=== PATIENT | male | born 1955 | race Caucasian/White ===

== ENCOUNTER 2019-01-17 11:50 | Emergency (ER) | payer BC ==
[2019-01-17] MEDS ORDERED: Glucagon,Human Recombinant 1 MG Vial IVPUSH ONE (12:06)
--- NOTE | 2019-01-17 12:12 | EDM.PDOC ---
ED HPI GENERAL MEDICAL PROBLEM - General Chief Complaint: Gastrointestinal Problem Stated Complaint: THROWING UP BLOOD Time Seen by Provider: 01/17/19 11:54 Source of Information: Reports: Patient History Limitations: Reports: No Limitations - History of Present Illness INITIAL COMMENTS - FREE TEXT/NARRATIVE: HISTORY AND PHYSICAL: History of present illness: Patient is a 63-year-old male who presents to the emergency room today with complaints of esophageal foreign body. He states that prior to arrival he was eating a chicken sandwich when he felt a piece of meat get stuck in his throat. He has had several episodes of emesis but still has the sensation and difficulty swallowing his saliva. He states he has had an esophageal food bolus previous which did require an EGD for extraction. Patient denies any fever, chills, headache, change in vision, syncope or near syncope. Denies any chest pain, back pain, dyspnea, shortness of breath or cough. Denies any abdominal pain, nausea, vomiting, diarrhea, constipation or dysuria. Past medical history of HTN and DM II. Review of systems: As per history of present illness and below otherwise all systems reviewed and negative. Past medical history: As per history of present illness and as reviewed below otherwise noncontributory. Surgical history: As per history of present illness and as reviewed below otherwise noncontributory. Social history: See social history for further information Family history: As per history of present illness and as reviewed below otherwise noncontributory. Physical exam: General: Well-developed and well-nourished 63-year-old male. Alert and oriented. Nontoxic appearing and in no acute distress. HEENT: Atraumatic, normocephalic, pupils equal and reactive bilaterally, negative for conjunctival pallor or scleral icterus, mucous membranes moist, TMs normal bilaterally, throat clear, neck supple, nontender, trachea midline. No drooling or trismus noted. No meningeal signs. No hot potato voice noted. Lungs: Clear to auscultation, breath sounds equal bilaterally, chest nontender. Heart: S1S2, regular rate and rhythm without overt murmur Abdomen: Soft, nondistended, nontender. Negative for masses or hepatosplenomegaly. Negative for costovertebral tenderness. Skin: Intact, warm, dry. No lesions or rashes noted. Extremities: Atraumatic, moves all extremities per self without difficulty or deficits, negative for cords or calf pain. Neurovascular unremarkable. Neuro: Awake, alert, oriented. Cranial nerves II through XII unremarkable. Cerebellum unremarkable. Motor and sensory unremarkable throughout. Exam nonfocal. Notes: Oral challenge was successful after the IV glucagon. Dr Mcneil was consulted on this case, as he was paged before patient was able to keep fluids down. He states that since this patient can now swallow and keep fluids down; to keep him on a bland clear/full liquid diet over the next few days. Patient has been able to keep liquids down and did attempt some applesauce. His vital signs have improved. Soft tissue x-ray shows no acute findings. Supportive care measures were reviewed and discussed. Diagnostics: Soft Tissue Neck Therapeutics: Glucagon, LR Impression: Esophageal food bolus, resolved History of hypertension Plan: 1. Full liquid diet over the next 24-48 hours (cream soup, fluids, etc...). Advance as tolerated 2. Tylenol and/or ibuprofen as needed for pain management. 3. Follow up with your primary care provider and/or the general surgeon as discussed. Return to the ED as needed and as discussed. Definitive disposition and diagnosis as appropriate pending reevaluation and review of above. epigastric Pain Score (Numeric/FACES): 5 - Related Data Allergies Allergy/AdvReac Type Severity Reaction Status Date / Time No Known Allergies Allergy Verified 01/17/19 11:57 Home Meds: Home Meds Aliskiren Hemifumarate [Tekturna] 300 mg PO DAILY 01/17/19 [History] Hydrochlorothiazide [Microzide] 1 tab PO DAILY 01/17/19 [History] Tamsulosin HCl [Flomax] 0.4 mg PO DAILY 01/17/19 [History] atorvaSTATin [Lipitor] 10 mg PO DAILY 01/17/19 [History] metFORMIN [Glucophage XR] 500 mg PO DAILY 01/17/19 [History] Past Medical History HEENT History: Reports: Other (See Below) Other HEENT History: hx small esophagus Cardiovascular History: Reports: Heart Murmur, Hypertension Respiratory History: Reports: None Gastrointestinal History: Reports: None Genitourinary History: Reports: Prostate Disorder Musculoskeletal History: Reports: None Neurological History: Reports: None Psychiatric History: Reports: None Endocrine/Metabolic History: Reports: Diabetes, Type II Hematologic History: Reports: None Immunologic History: Reports: None Oncologic (Cancer) History: Reports: Prostate Dermatologic History: Reports: None - Infectious Disease History Infectious Disease History: Reports: Chicken Pox, Measles, Mumps - Past Surgical History Head Surgeries/Procedures: Reports: None HEENT Surgical History: Reports: None Cardiovascular Surgical History: Reports: None Respiratory Surgical History: Reports: None GI Surgical History: Reports: None Male Surgical History: Reports: None Endocrine Surgical History: Reports: None Neurological Surgical History: Reports: None Musculoskeletal Surgical History: Reports: None Oncologic Surgical History: Reports: None Dermatological Surgical History: Reports: None Social & Family History - Family History Family Medical History: Noncontributory - Tobacco Use Smoking Status *Q: Never Smoker Second Hand Smoke Exposure: No - Caffeine Use Caffeine Use: Reports: Coffee - Recreational Drug Use Recreational Drug Use: Yes Recreational Drug Type: Reports: Marijuana/Hashish Recreational Drug Use Frequency: Socially ED ROS ENT - Review of Systems Review Of Systems: ROS reveals no pertinent complaints other than HPI. ED EXAM, ENT - Physical Exam Exam: See Below (See dictation) Course - Vital Signs Last Recorded V/S: Last Vital Signs Temp 96.9 F 01/17/19 11:55 Pulse 118 H 01/17/19 11:55 Resp 18 01/17/19 11:55 BP 166/112 H 01/17/19 11:55 Pulse Ox 97 01/17/19 11:55 - Orders/Labs/Meds Orders: Active Orders 24 hr Category Date Time Status Lactated Ringers [Ringers, Lactated] 1,000 ml Med 01/17/19 12:15 Active IV ASDIRECTED Medication Orders Lactated Ringer's (Ringers, Lactated) 1,000 mls @ 150 mls/hr IV ASDIRECTED MATTY Last Admin: 01/17/19 12:22 Dose: 150 mls/hr Meds: Medications Generic Name Dose Route Start Last Admin Trade Name Freq PRN Reason Stop Dose Admin Lactated Ringer's 1,000 mls @ 150 mls/hr 01/17/19 12:15 01/17/19 12:22 Ringers, Lactated IV 150 mls/hr ASDIRECTED MATTY Administration Discontinued Medications Generic Name Dose Route Start Last Admin Trade Name Freq PRN Reason Stop Dose Admin Al Hydroxide/Mg Hydroxide 15 0 ml 01/17/19 13:39 ml/ Lidocaine HCl 5 ml PO 01/17/19 13:40 ONETIME ONE Glucagon 1 mg 01/17/19 12:06 01/17/19 12:22 Glucagen IVPUSH 01/17/19 12:07 1 mg ONETIME ONE Administration Departure - Departure Time of Disposition: 13:45 Disposition: Home, Self-Care 01 Clinical Impression: Esophageal foreign body Qualifiers: Encounter type: initial encounter Qualified Code(s): T18.108A - Unspecified foreign body in esophagus causing other injury, initial encounter - Discharge Information Instructions: Swallowed Foreign Body, Adult, [id number] Referrals: PCP,None [Primary Care Provider] - Forms: ED Department Discharge Additional Instructions: The following information is given to patients seen in the emergency department who are being discharged to home. This information is to outline your options for follow-up care. We provide all patients seen in our emergency department with a follow-up referral. The need for follow-up, as well as the timing and circumstances, are variable depending upon the specifics of your emergency department visit. If you don't have a primary care physician on staff, we will provide you with a referral. We always advise you to contact your personal physician following an emergency department visit to inform them of the circumstance of the visit and for follow-up with them and/or the need for any referrals to a consulting specialist. The emergency department will also refer you to a specialist when appropriate. This referral assures that you have the opportunity for follow-up care with a specialist. All of these measure are taken in an effort to provide you with optimal care, which includes your follow-up. Under all circumstances we always encourage you to contact your private physician who remains a resource for coordinating your care. When calling for follow-up care, please make the office aware that this follow-up is from your recent emergency room visit. If for any reason you are refused follow-up, please contact the [facility] Emergency Department at and asked to speak to the emergency department charge nurse. [facility] [address] [place] [id number] [address] 1. Full liquid diet over the next 24-48 hours (cream soup, fluids, etc...). Advance as tolerated 2. Tylenol and/or ibuprofen as needed for pain management. 3. Follow up with your primary care provider and/or the general surgeon as discussed. Return to the ED as needed and as discussed. - My Orders Last 24 Hours: My Active Orders 01/17/19 12:15 Lactated Ringers [Ringers, Lactated] 1,000 ml IV ASDIRECTED - Assessment/Plan Last 24 Hours: My Active Orders 01/17/19 12:15 Lactated Ringers [Ringers, Lactated] 1,000 ml IV ASDIRECTED
[2019-01-17] MEDS ORDERED: Lactated Ringers 1,000 ML IV SCH (12:15)
[2019-01-17] MEDS ORDERED: Alum Hydrox/Mag Hydrox/Simeth 15 ML, Lidocaine 2% 5 ML PO ONE ×2 (13:39)
--- NOTE | 2019-01-17 14:04 | CR ---
Soft tissue neck: AP and lateral views of the neck were obtained. Tissue purposes. Prevertebral soft tissues are normal. Epiglottis is normal. Severe disc space narrowing is noted at C5-C6 with anterior osteophytes. Moderate disc space narrowing at C6-C7. No discrete radiopaque foreign object is seen. Impression: 1. Degenerative change within the spine. 2. Soft tissues of the neck are unremarkable. 3. No discrete opaque foreign body is seen. Diagnostic code #2 MTDD
== END 2019-01-17 14:20 | disposition home or self-care (01) ==
LOC: MW.ED 11:50
DX: T18.128A Food in esophagus causing other injury, initial encounter (principal); E11.9 Type 2 diabetes mellitus without complications; I10 Essential (primary) hypertension; Z79.84 Long term (current) use of oral hypoglycemic drugs; Z79.899 Other long term (current) drug therapy
CPT/HCPCS: 70360; 96361; 96374; 99283; A9270; J1610; J7120

== ENCOUNTER 2019-05-16 09:29 | Day surgery (SDC) | payer BC ==
[~2019-05-16 09:29] MED LIST: 50% Dextrose in Water 50 ML Syringe IVPUSH PRN; Albuterol 0.083% 2.5 MG/3 ML Neb Soln NEB PRN; Atropine 0.1 MG/ML 10 ML Syringe IVPUSH PRN; EPINEPHrine 1:10,000 1 MG/10 ML Syringe IVPUSH PRN; Lactated Ringers 1,000 ML IV SCH; Midazolam 1 MG/ML 2 ML SDV ONE; Naloxone 0.4 MG/ML Syringe IVPUSH PRN; Propofol 200 MG/20 ML SDV ONE; fentaNYL 100 MCG/2 ML SDV IVPUSH PRN; fentaNYL 100 MCG/2 ML SDV ONE
--- NOTE | 2019-05-16 10:10 | PCM.PREANE ---
Preanesthetic Assessment - Anesthesia/Transfusion/Family Hx Anesthesia History: Prior Anesthesia Without Reaction Family History of Anesthesia Reaction: No Transfusion History: No Prior Transfusion(s) Intubation History: Unknown - Review of Systems General: No Symptoms Pulmonary: No Symptoms Cardiovascular: No Symptoms Gastrointestinal: Difficulty Swallowing Neurological: No Symptoms Other: Reports: None - Physical Assessment Height: 5 ft 10 in Weight: 91.172 kg ASA Class: 2 Mental Status: Alert & Oriented x3 Airway Class: Mallampati = 2 Dentition: Reports: Normal Dentition Thyro-Mental Finger Breadths: 3 Mouth Opening Finger Breadths: 3 ROM/Head Extension: Full Lungs: Clear to Auscultation, Normal Respiratory Effort Cardiovascular: Regular Rate, Regular Rhythm - Allergies Allergies/Adverse Reactions: Allergies Allergy/AdvReac Type Severity Reaction Status Date / Time No Known Allergies Allergy Verified 05/10/19 07:37 - Blood Blood Available: No - Anesthesia Plan Pre-Op Medication Ordered: None - Acknowledgements Anesthesia Type Planned: MAC Pt an Appropriate Candidate for the Planned Anesthesia: Yes Alternatives and Risks of Anesthesia Discussed w Pt/Guardian: Yes Pt/Guardian Understands and Agrees with Anesthesia Plan: Yes PreAnesthesia Questionnaire HEENT History: Reports: Other (See Below) Other HEENT History: uses reading glasses Cardiovascular History: Reports: Heart Murmur, High Cholesterol, Hypertension Respiratory History: Reports: Asthma Other Respiratory History: had Asthma as a child- has not used an inhaler since then Gastrointestinal History: Other Gastrointestinal History: hx of dysphagia Genitourinary History: Reports: Prostate Disorder Other Genitourinary History: hx of Prostate cancer Musculoskeletal History: Reports: Fracture Other Musculoskeletal History: hx of fx wrist Neurological History: Reports: Concussion Psychiatric History: Reports: None Endocrine/Metabolic History: Reports: Other (See Below) Other Endocrine/Metabolic History: Pre-diabetic, om metformin Hematologic History: Reports: None Immunologic History: Reports: None Oncologic (Cancer) History: Reports: Prostate (radioactive seeds placed in 10/15 ) Dermatologic History: Reports: None - Infectious Disease History Infectious Disease History: Reports: Chicken Pox, Measles, Mumps - Past Surgical History Head Surgeries/Procedures: Reports: None HEENT Surgical History: Reports: Oral Surgery Other HEENT Surgeries/Procedures: has upper and lower dental implants Cardiovascular Surgical History: Reports: None Respiratory Surgical History: Reports: None GI Surgical History: Reports: EGD (10 years ago), Hernia, Inguinal Other GI Surgeries/Procedures: hx of FB removal from esophagus Male Surgical History: Reports: Other (See Below) Other Male Surgeries/Procedures: had radiation seeds implanted in prostate Endocrine Surgical History: Reports: None Neurological Surgical History: Reports: None Musculoskeletal Surgical History: Reports: Other (See Below) Other Musculoskeletal Surgeries/Procedures:: Osteotomy left knee (has 2 screws) Oncologic Surgical History: Reports: Other (See Below) Other Oncologic Surgeries/Procedures: radiation seeds implanted in prostate Dermatological Surgical History: Reports: None - SUBSTANCE USE Smoking Status *Q: Never Smoker Recreational Drug Use History: No - HOME MEDS Home Medications: Home Meds Tamsulosin HCl [Flomax] 0.4 mg PO DAILY 01/17/19 [History] atorvaSTATin [Lipitor] 10 mg PO DAILY 01/17/19 [History] metFORMIN [Glucophage XR] 1,000 mg PO DAILY 01/17/19 [History] Diltiazem HCl [Cardizem LA] 300 mg PO DAILY 05/10/19 [History] Sildenafil Citrate 3 - 5 tab PO ASDIRECTED PRN 05/10/19 [History] Tadalafil [Cialis] 20 mg PO ASDIRECTED 05/10/19 [History] hydroCHLOROthiazide [Hydrochlorothiazide] 25 mg PO DAILY 05/10/19 [History] Aliskiren Hemifumarate [Tekturna] 300 mg PO QAM 05/11/19 [History] - CURRENT (IN HOUSE) MEDS Current Meds: Current Medications Albuterol (Proventil Neb Soln) 2.5 mg NEB ONETIME PRN PRN Reason: Wheezing Atropine Sulfate (Atropine 0.1 Mg/Ml) 1 mg IVPUSH ASDIRECTED PRN PRN Reason: Hypo-Perfusion Dextrose/Water (Dextrose 50% In Water) 50 ml IVPUSH ASDIRECTED PRN PRN Reason: Hypoglycemia Epinephrine HCl (Epinephrine 1:10,000) 1 mg IVPUSH ASDIRECTED PRN PRN Reason: ACLS Guidelines Fentanyl (Sublimaze) 50 mcg IVPUSH Q5M PRN PRN Reason: Pain Lactated Ringer's (Ringers, Lactated) 1,000 mls @ 125 mls/hr IV ASDIRECTED MATTY Naloxone HCl (Narcan) 0.1 mg IVPUSH ASDIRECTED PRN PRN Reason: Respiratory Depression Discontinued Medications Atropine Sulfate (Atropine 0.1 Mg/Ml) 0.5 mg IVPUSH ASDIRECTED PRN PRN Reason: Hypo-perfusion Stop: 05/16/19 09:11 Fentanyl (Sublimaze) Confirm Administered Dose 100 mcg .ROUTE .STK-MED ONE Stop: 05/16/19 07:16 Midazolam HCl (Versed 1 Mg/Ml) Confirm Administered Dose 2 mg .ROUTE .STK-MED ONE Stop: 05/16/19 07:16 Propofol (Diprivan 20 Ml) Confirm Administered Dose 400 mg .ROUTE .STK-MED ONE Stop: 05/16/19 07:16
--- NOTE | 2019-05-16 11:29 | PCM.OPNOTE ---
- General Post-Op/Procedure Note Date of Surgery/Procedure: 05/16/19 Operative Procedure(s): Esophagogastroduodenoscopy with duodenal, gastric and esophageal biopsies Pre Op Diagnosis: Dysphagia. Post-Op Diagnosis: Mild to moderate duodenitis. Moderate to severe acute gastritis. Severe erosive esophagitis. Anesthesia Technique: MAC (ASA II) Primary Surgeon: Moisés Mcneil Condition: Good Free Text/Narrative:: DICTATION 001101 CPT CODE 79279
[2019-05-16] MEDS ORDERED: Lactated Ringers 1,000 ML IV SCH (11:30)
--- NOTE | 2019-05-16 11:42 | PCM.POSTAN ---
POST ANESTHESIA ASSESSMENT - MENTAL STATUS Mental Status: Alert, Oriented - VITAL SIGNS Vital Signs: Last Vital Signs Temp 99.1 F 05/16/19 11:28 Pulse 78 05/16/19 11:38 Resp 12 05/16/19 11:38 BP 120/75 05/16/19 11:38 Pulse Ox 95 05/16/19 11:38 - RESPIRATORY Respiratory Status: Respiratory Rate WNL, Airway Patent, O2 Saturation Stable - CARDIOVASCULAR CV Status: Pulse Rate WNL, Blood Pressure Stable - GASTROINTESTINAL GI Status: No Symptoms - PAIN Pain Score: 0 - POST OP HYDRATION Hydration Status: Adequate & Stable - OBSERVATIONS Free Text/Narrative:: Pt stable for discharge to phase II recovery.
--- NOTE | 2019-05-16 11:52 | OR ---
SURGEON: Moisés Mcneil M.D. DATE OF PROCEDURE: 05/16/2019 OPERATION PERFORMED: Esophagogastroduodenoscopy with duodenal, gastric, and esophageal biopsies. PRIMARY SURGEON: Moisés Mcneil MD. ANESTHESIA: MAC. ASA CLASSIFICATION: II. PREOPERATIVE DIAGNOSIS: Dysphagia. POSTOPERATIVE DIAGNOSES: 1. Acute duodenitis. 2. Acute gastritis. 3. Severe erosive esophagitis. DESCRIPTION OF PROCEDURE: The patient was taken to the endoscopy room, positioned on the endoscopy table in the supine position. Time-out was called for appropriate identification of the patient and procedure. Monitored anesthesia care was provided. The bite block was placed between the patient's teeth. The gastroscope was inserted through the bite block and advanced without difficulty through the esophagus and stomach into the duodenum where examination was now carried out in a retrograde fashion. The duodenum did show a moderately acute gastritis. Duodenal biopsies were obtained. The gastroscope was then withdrawn to the stomach which also showed an acute gastritis. Antral biopsies were obtained to look for the presence of Helicobacter pylori. The gastroscope was retroflexed to visualize the proximal stomach. No significant hiatal hernia was noted on examination. No tumors or ulcers were noted in the proximal stomach. The gastroscope was then withdrawn to the GE junction. The distal 7 to 8 cm of esophagus showed a very severe esophagitis. Several biopsies of the distal esophagus were obtained. The esophagus itself demonstrated good contractility. The mid and proximal esophagus demonstrated normal and healthy-appearing mucosa with no erosions or ulcerations. The vocal cords were visualized as the scope was withdrawn and noted to move symmetrically. No vocal cord lesions were identified. The gastroscope was then removed with the patient having tolerated the procedure well. He was taken to recovery room in stable condition. HENRY / VIJAY /[id number]
--- NOTE | 2019-05-16 12:05 | PCM48HPAN ---
Post Anesthesia Note - EVALUATION WITHIN 48HRS OF ANESTHETIC Vital Signs in Normal Range: Yes Patient Participated in Evaluation: Yes Respiratory Function Stable: Yes Airway Patent: Yes Cardiovascular Function Stable: Yes Hydration Status Stable: Yes Pain Control Satisfactory: Yes Nausea and Vomiting Control Satisfactory: Yes Mental Status Recovered: Yes Vital Signs: Last Vital Signs Temp 37.3 C 05/16/19 11:28 Pulse 77 05/16/19 11:43 Resp 14 05/16/19 11:43 BP 112/72 05/16/19 11:43 Pulse Ox 95 05/16/19 11:43 - COMMENTS/OBSERVATIONS Free Text/Narrative:: no anesthesia problems
== END 2019-05-16 12:35 | disposition home or self-care (01) ==
LOC: MW.SDS 09:29
PROVIDERS: ATTEND Surgery
DX: K22.10 Ulcer of esophagus without bleeding (principal); K29.50 Unspecified chronic gastritis without bleeding; K29.00 Acute gastritis without bleeding; K29.80 Duodenitis without bleeding; I10 Essential (primary) hypertension; E78.5 Hyperlipidemia, unspecified; J45.909 Unspecified asthma, uncomplicated; E78.00 Pure hypercholesterolemia, unspecified; R73.03 Prediabetes; Z85.46 Personal history of malignant neoplasm of prostate; Z92.3 Personal history of irradiation; Z79.899 Other long term (current) drug therapy; Z79.84 Long term (current) use of oral hypoglycemic drugs; Z98.890 Other specified postprocedural states
CPT/HCPCS: 43239; 88305; 88312; J2250; J2704; J3010; J7120; 00731